=== PATIENT | male | born 1955 | race Caucasian/White ===

== ENCOUNTER → 2024-02-03 15:45 | Outpatient (REF) | payer OTHER, SELFPAY | LOC: HWRAD 15:45 | PROVIDERS: ATTENDING PHYSICIAN Physician Assistant Medical | DX: M25.571 Pain in right ankle and joints of right foot (principal) | CPT/HCPCS: 73610 ==

== ENCOUNTER 2024-12-16 06:18 | Day surgery (SDC) | payer OTHER, SELFPAY | END 2024-12-16 13:42 | disposition home or self-care (01) | LOC: GI 06:18 | PROVIDERS: ATTENDING PHYSICIAN Specialist | DX: Z12.11 Encounter for screening for malignant neoplasm of colon (principal); D12.3 Benign neoplasm of transverse colon; K63.5 Polyp of colon; K57.30 Diverticulosis of large intestine without perforation or abscess without bleeding; Z86.0101 Personal history of adenomatous and serrated colon polyps | CPT/HCPCS: 45380; 88305 ==